=== PATIENT | female | born 1945 | race Caucasian/White ===

== ENCOUNTER 2022-08-22 11:10 | Outpatient (RCR) | payer MEDICARE, OTHER | END 2022-08-24 | disposition home or self-care (01) | LOC: CR 11:10 | PROVIDERS: ATTEND Internal Medicine Cardiovascular Disease | DX: Z29.8 Encounter for other specified prophylactic measures (principal) | CPT/HCPCS: 93798 ==

== ENCOUNTER 2022-09-19 10:19 | Outpatient (RCR) | payer MEDICARE, OTHER | END 2022-09-24 | disposition home or self-care (01) | LOC: CR 10:19 | PROVIDERS: ATTEND Internal Medicine Cardiovascular Disease | DX: Z29.8 Encounter for other specified prophylactic measures (principal); Z95.5 Presence of coronary angioplasty implant and graft | CPT/HCPCS: 93798 ==

== ENCOUNTER 2022-10-22 11:22 | Outpatient (RCR) | payer MEDICARE, OTHER | END 2022-10-24 | disposition home or self-care (01) | LOC: CR 11:22 | PROVIDERS: ATTEND Internal Medicine Cardiovascular Disease | DX: Z29.8 Encounter for other specified prophylactic measures (principal); I21.3 ST elevation (STEMI) myocardial infarction of unspecified site; Z95.5 Presence of coronary angioplasty implant and graft | CPT/HCPCS: 93798 ==

== ENCOUNTER 2022-11-21 10:03 | Outpatient (RCR) | payer MEDICARE, OTHER | END 2022-11-24 | disposition home or self-care (01) | LOC: CR 10:03 | PROVIDERS: ATTEND Internal Medicine Cardiovascular Disease | DX: Z29.8 Encounter for other specified prophylactic measures (principal); I21.3 ST elevation (STEMI) myocardial infarction of unspecified site; Z95.5 Presence of coronary angioplasty implant and graft | CPT/HCPCS: 93798 ==

== ENCOUNTER 2022-11-26 06:47 | Outpatient (RCR) | payer MEDICARE, OTHER | END 2022-12-25 | disposition home or self-care (01) | LOC: CR 06:47 | PROVIDERS: ATTEND Internal Medicine Cardiovascular Disease | DX: Z29.8 Encounter for other specified prophylactic measures (principal); I21.3 ST elevation (STEMI) myocardial infarction of unspecified site; Z95.5 Presence of coronary angioplasty implant and graft | CPT/HCPCS: 93798 ==